=== PATIENT | female | born 1945 | race Caucasian/White ===

== ENCOUNTER 2022-10-02 10:36 | Emergency (ER) | payer MEDICARE ==
[~2022-10-02] VITALS: Ht 160 cm; Wt 59.1 kg
[2022-10-02 13:18] VITALS: BP 125/65
[2022-10-02 13:19] LABS: WHITE BLOOD COUNT 12.7 X10'3 (4.5-11.0)
[2022-10-02 13:20] LABS: BASOPHILS % (AUTO) 0.3 % (0-1); EOSINOPHILS % (AUTO) 0.2 % (0-6); HEMATOCRIT 40.3 % (35.0-45.0); HEMOGLOBIN 14.1 g/dl (12.0-16.0); LYMPHOCYTES # (AUTO) 1.6 X10'3 (1.1-4.8); LYMPHOCYTES % (AUTO) 12.7 % (21-51); MEAN CORPUSCULAR HGB CONC 35.1 g/dL (33.0-36.5); MEAN CORPUSCULAR VOLUME 94.1 FL (78-98); MEAN PLATELET VOLUME 7.2 FL (7.4-10.4); MONOCYTES # (AUTO) 0.7 X10'3 (0-0.9); MONOCYTES % (AUTO) 5.9 % (2-12); NEUTROPHILS # (AUTO) 10.3 X10'3 (1.8-7.7); NEUTROPHILS % (AUTO) 80.9 % (42-75); PLATELET COUNT 215 X10'3 (140-440); RED BLOOD COUNT 4.29 X10'6 (4.20-5.60); RED CELL DISTRIBUTION WIDTH 12.8 % (11.5-14.5)
[2022-10-02 13:29] LABS: ALANINE AMINOTRANSFERASE 41 U/L (12-78); ALBUMIN 3.7 G/DL (3.4-5.0); ALBUMIN/GLOBULIN RATIO 0.8 (1.1-1.5); ALKALINE PHOSPHATASE 98 IU/L (46-116); ANION GAP 14 (8-16); ASPARTATE AMINO TRANSFERASE 23 U/L (10-37); BILIRUBIN,TOTAL 1.6 MG/DL (0.1-1.0); BLOOD UREA NITROGEN 16 MG/DL (7-18); BUN/CREATININE RATIO 13.8 (6.6-38.0); CALCIUM 10.3 MG/DL (8.5-10.1); CHLORIDE 100 MMOL/L (99-107); CREATININE 1.16 MG/DL (0.40-0.90); GLUCOSE 156 MG/DL (70-104); POTASSIUM 3.6 MMOL/L (3.5-5.1); SODIUM 136 MMOL/L (135-145); TOTAL CARBON DIOXIDE 22.4 MMOL/L (24-32); TOTAL PROTEIN 8.5 G/DL (6.4-8.2); eGFR 46 ML/MIN
[2022-10-02] MEDS ORDERED: acetaminophen 325mg tablet PO ONE (14:30)
[2022-10-02] MEDS ORDERED: celeCOXIB 100mg capsule PO ONE (14:30)
[2022-10-02] MEDS ORDERED: celeCOXIB 100mg capsule PO SCH (14:30)
[2022-10-02 16:00] LABS: CLARITY,URINE CLEAR (Clear); COLOR,URINE YELLOW (Yellow); GLUCOSE, URINE NEGATIVE (Neg); KETONES,URINE NEGATIVE (Neg); LEUKOCYTE ESTERASE ,URINE NEGATIVE (Neg); NITRITES, URINE NEGATIVE (Neg); OCCULT BLOOD,URINE NEGATIVE (Neg); PROTEIN,URINE NEGATIVE (Neg); UROBILINOGEN,URINE 0.2 E.U/dL (0.2-1.0)
[2022-10-02 16:01] LABS: UA COLLECTION TYPE VOIDED
[2022-10-02] MEDS ORDERED: CELE-193 PO (16:41)
[2022-10-03] MEDS ORDERED: AMIT25TA9 PO (13:31)
[2022-10-03] MEDS ORDERED: ATOR40TA72 PO (13:31)
[2022-10-03] MEDS ORDERED: MELO-100 PO (13:31)
[2022-10-03] MEDS ORDERED: SERT-432 PO (13:31)
[2022-10-03] MEDS ORDERED: LEVO50TA8 PO (13:31)
[2022-10-03] MEDS ORDERED: CELE100C98 PO (13:31)
== END 2022-10-02 18:20 | disposition home or self-care (01) ==
LOC: ER 10:37
DX: S80.02XA Contusion of left knee, initial encounter (principal); S80.01XA Contusion of right knee, initial encounter; M25.532 Pain in left wrist; E78.00 Pure hypercholesterolemia, unspecified; W19.XXXA Unspecified fall, initial encounter; Y93.89 Activity, other specified; Y92.89 Other specified places as the place of occurrence of the external cause; Y99.8 Other external cause status
CPT/HCPCS: 29125; 93005; 99285; L3908; 36415; 71045; 73030; 73110; 80053; 81003; 83605; 84145; 85025; 87040